=== PATIENT | female | born 1950 | race Caucasian/White ===

== ENCOUNTER 2020-03-30 11:00 | Outpatient (RCR) | payer MEDICARE, OTHER, SELFPAY | END 2020-04-08 11:30 | disposition home or self-care (01) | LOC: PT.CARL 11:00 | PROVIDERS: Visit Provider Orthopaedic Surgery Adult Reconstructive Orthopaedic Surgery | DX: M25.562 Pain in left knee (principal); Z96.652 Presence of left artificial knee joint | CPT/HCPCS: 97010; 97014; 97110; 97140; 97163; G0283 ==

== ENCOUNTER 2021-02-24 09:00 | Outpatient (RCR) | payer MEDICARE, OTHER, SELFPAY | END 2021-03-02 13:00 | disposition home or self-care (01) | LOC: PT.CARL 09:00 | PROVIDERS: PCP Nurse Practitioner; Visit Provider Orthopaedic Surgery Adult Reconstructive Orthopaedic Surgery | DX: M25.562 Pain in left knee (principal); Z96.652 Presence of left artificial knee joint | CPT/HCPCS: 97010; 97014; 97110; 97163; G0283 ==

== ENCOUNTER 2023-07-14 19:21 | Emergency (ER) | payer OTHER, MEDICARE, SELFPAY ==
[2023-07-14 19:23] VITALS: BP 196/83; PULSE 106; RESP 16; TEMP 36.9; O2SAT 99; BMI 38.4
--- NOTE | 2023-07-14 19:49 | CT_ITS ---
PROCEDURE INFORMATION: Exam: CT Left Upper Extremity Without Contrast, Shoulder Exam date and time: 07/14/2023 8:01 PM Age: 73 years old Clinical indication: Pain; Shoulder; Left; Additional info: Trauma 1 month ago, severe pain TECHNIQUE: Imaging protocol: Computed tomography of the left upper extremity without contrast. Exam focused on the shoulder. Radiation optimization: All CT scans at this facility use at least one of these dose optimization techniques: automated exposure control; mA and/or kV adjustment per patient size (includes targeted exams where dose is matched to clinical indication); or iterative reconstruction. REPORTING DATA: Count of CT and Cardiac NM exams in prior 12 months: This patient has received 0 known CTs and 0 known cardiac nuclear medicine studies in the 12 months prior to the current study. COMPARISON: No relevant prior studies available. FINDINGS: Bones/joints: Osseous alignment is normal. No acute fracture. Mild degenerative changes in the acromioclavicular joint. Mild findings of calcific tendinosis of the rotator cuff. Soft tissues: Normal. IMPRESSION: No acute abnormality. Chronic findings as noted.
--- NOTE | 2023-07-14 19:50 | [facility].EDGENADL ---
Discharge Plan Disposition Patient Disposition: Home, Self-Care Condition: Good Chief Complaint: Extremity Injury, Upper Prescriptions Prescriptions: No Action simvastatin 20 mg tablet 20 mg PO pantoprazole 40 mg tablet,delayed release (DR/EC) PO alendronate 70 mg tablet 70 mg PO oxycodone-acetaminophen 10-325 mg tablet 1 tab PO oxybutynin chloride 10 mg tablet extended release 24hr PO Patient Comments: TAKE 1 TABLET BY MOUTH EVERY DAY gabapentin 800 mg tablet 800 mg PO QID Patient Comments: TAKE 1 TABLET BY MOUTH FOUR TIMES DAILY amitriptyline 25 mg tablet 25 mg PO Patient Comments: TAKE 1 TABLET BY MOUTH AT BEDTIME levothyroxine 88 mcg tablet 88 mcg PO cinnamon bark [Cinnamon] 500 mg capsule 500 mg PO DAILY melatonin 300 mcg tablet 0.3 mg PO HS PRN methadone 5 mg tablet 5 mg PO Patient Comments: TAKE 1 TABLET ORALLY EVERY 8 HOURS, 3 TIMES A DAY 15 DAYS urea 40 % cream 1 applic TP BID Qty: 28.35 2RF Referrals Follow up/Referrals: Yana Washington [Primary Care Provider] - See instructions Rome Love DO [Staff Physician] - See instructions (Rotator cuff injury) Clinical Impressions Clinical Impression: Rotator cuff arthropathy of left shoulder Instructions Patient Instructions: DI for Rotator Cuff Injury, Shoulder Tendinopathy Discharge ED Provider: Yvonne Guan General Adult HPI General Chief complaint: Extremity Injury, Upper Stated complaint: LT shoulder pain Time Seen by Provider: 07/14/23 19:41 Mode of Arrival: Ambulatory Source of Information: Spouse Limitations: No Limitations Description of Symptoms (Recalled from ER Triage Doc. by RN): Pt reports shoulder injury on jun 15 and was seen at [facility], had xrays and was told pulled muscle, pt reports that pain is worsening. History of Present Illness HPI narrative: 73-year-old female with no significant past medical history presenting to the ED with complaints of left shoulder pain. Patient notes that on June 15, patient sustained an injury to left shoulder while lifting heavy boxes of canes and 5 pound bags of rice. Patient notes that since the injury, she has been to an outside hospital where x-rays reportedly negative and she was told that she had a muscle strain. Over the past month, patient had progressively worsening left shoulder pain that is acutely worsened in the last 24 hours. Patient notes decreased range of motion secondary to the pain with intermittent numbness and tingling shooting down her arm. 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 Related Data Home Medications Medication Instructions Recorded Confirmed alendronate 70 mg tablet 70 mg PO 12/31/20 06/01/23 amitriptyline 25 mg tablet 25 mg PO 12/31/20 06/01/23 cinnamon bark 500 mg capsule 500 mg PO DAILY 12/31/20 06/01/23 (Cinnamon) gabapentin 800 mg tablet 800 mg PO QID 12/31/20 06/01/23 levothyroxine 88 mcg tablet 88 mcg PO 12/31/20 06/01/23 melatonin 300 mcg tablet 0.3 mg PO HS PRN 12/31/20 06/01/23 oxybutynin chloride 10 mg ea PO 12/31/20 06/01/23 tablet,extended release 24 hr oxycodone-acetaminophen 10 mg-325 1 tab PO 12/31/20 06/01/23 mg tablet pantoprazole 40 mg tablet,delayed tab PO 12/31/20 06/01/23 release simvastatin 20 mg tablet 20 mg PO 12/31/20 06/01/23 methadone 5 mg tablet 5 mg PO 09/27/21 06/01/23 Previous Rx's Medication Instructions Recorded urea 40 % topical cream 1 applic topical BID callus #28.35 01/01/22 grams Allergies Allergy/AdvReac Type Severity Reaction Status Date / Time No Known Allergies Allergy Verified 06/01/23 14:19 [facility] Disclaimer: The information contained in this section may have been updated after the patient was seen, as this information can be updated by other users. Social History Smoking Status: Never smoker alcohol intake: never s
[2023-07-14 20:40] VITALS: BP 124/70; PULSE 88; RESP 18; TEMP 36.8; O2SAT 98
== END 2023-07-14 20:43 | disposition home or self-care (01) ==
PROVIDERS: Emergency Provider Emergency Medicine; PCP Nurse Practitioner Family
DX: M75.32 Calcific tendinitis of left shoulder (principal); X50.0XXA Overexertion from strenuous movement or load, initial encounter
CPT/HCPCS: 73200; 99284